=== PATIENT | male | born 1965 | race Caucasian/White ===

== ENCOUNTER 2016-08-31 18:27 | Inpatient (IN) | payer OTHER ==
[~2016-08-31] VITALS: Ht 170.2 cm; Wt 124.5 kg
[~2016-08-31 18:27] MED LIST: 5HTP; AMLODIPINE10 MG PO; ATIVAN1 MG PO; CLONIDINE0.1 M1 PO; COL100 PO; CORE25 PO; CYMBALTA PO; CYMBALTA60 M1 PO; DIPHENHIST25 M1 PO; DOCUSATE; FUROSEMIDE40 MG PO; GLU500 PO; HYT2 PO; K10 PO; LIPOZENE; LISINOPRIL; LOP600 PO; LORAZEPAM0.5 PO; MASON25 MG PO; MORPHINE SULFAT30 M1 PO; MORPHINE SULFAT30 M5 PO; MSC30 PO; NEU100 PO; NEURONTIN600 M PO; NOR10T PO; PENTOXIFYLLINE400 MG PO; PRI20 PO; ROB750 PO; SERO100 PO; SEROQUEL PO; SEROQUEL50 MG PO; SOMA350 MG PO; VITAMIN D; ZOCOR PO
[2016-08-31 19:13] LABS: UA SPECIFIC GRAVITY >=1.030 (1.005-1.035); microscopic required? YES; urine erythrocyte TRACE (NEGATIVE)
[2016-08-31 19:21] LABS: BASOPHIL % 0.1 % (0-2); PLATELET COUNT 250 x10^3mcL (130-400)
[2016-08-31 19:25] LABS: CALCIUM 8.8 mg/dL (8.5-10.1); CARBON DIOXIDE 29.1 mmol/L (21-32); CHLORIDE SERUM 102 mmol/L (98-107); CREATININE SERUM 1.1 mg/dL (0.7-1.3); GFR1 > 60 mL/min; GLUCOSE SERUM 139 mg/dL (74-106); POTASSIUM SERUM 3.4 mmol/L (3.5-5.1); SODIUM SERUM 139 mmol/L (136-145)
[2016-08-31 19:26] LABS: RED CELL DISTRIBUTION WIDTH 16.1 % (11.5-14.5)
[2016-08-31 19:35] LABS: ALKALINE PHOSPHATASE 78 U/L (46-116); ALT/SGPT 22 U/L (16-63); AST/SGOT 18 U/L (15-37); BILIRUBIN TOTAL 0.3 mg/dL (0.20-1.00); TOTAL PROTEIN, SERUM 6.7 g/dL (6.4-8.2)
[2016-08-31 20:00] LABS: CK-MB 2.1 ng/mL (0-3.6)
[2016-08-31] MEDS ORDERED: GABAPENTIN100 M2 PO (22:26)
[2016-08-31] MEDS ORDERED: COLACE100 MG PO (22:27)
[2016-08-31] MEDS ORDERED: SEROQUEL25 MG PO (22:28)
[2016-08-31] MEDS ORDERED: IMITREX5 MG INH (22:39)
[2016-08-31] MEDS ORDERED: AMLODIPINE BESY10 M2 PO (22:40)
[2016-08-31] MEDS ORDERED: METFORMIN500 M1 PO (22:41)
[2016-08-31] MEDS ORDERED: ATIVAN2 MG PO (22:42)
[2016-08-31] MEDS ORDERED: GEMFIBROZIL600 MG PO (22:42)
[2016-08-31] MEDS ORDERED: CYMBALTA30 M1 PO (22:42)
[2016-08-31] MEDS ORDERED: CARVEDILOL12.5 M1 PO (22:42)
[2016-08-31] MEDS ORDERED: ATIVAN0.5 M1 PO (22:43)
[2016-08-31] MEDS ORDERED: NORCO1 TA2 PO (22:43)
[2016-09-01] VITALS (8 sets, daily range): BP systolic 130–169; BP diastolic 79–99
[2016-09-01] MEDS ORDERED: CLONIDINE HCL0.1 MG PO (00:11)
[2016-09-01] MEDS ORDERED: TERAZOSIN HCL2 MG PO (00:13)
[2016-09-01] MEDS ORDERED: GLUCOTROL5 MG PO (00:14)
[2016-09-01] MEDS ORDERED: ZESTRIL40 MG PO (00:15)
[2016-09-01 01:01] LABS: FREE T4 0.8 ng/dL (0.76-1.46); FREE THYROXINE INDEX 1.8 ug/dL (1.4-4.5)
[2016-09-01 01:09] LABS: T3 TOTAL 0.73 ng/mL
[2016-09-01 01:27] LABS: MAGNESIUM 2.1 mg/dL (1.8-2.4)
[2016-09-01 01:28] LABS: CHOLESTEROL/HDL RATIO 5.1
[2016-09-01 04:35] LABS: AMPHETAMINE QUAL UR NONE DETECTED (NEG <=1000)
[2016-09-01 06:16] LABS: CALCIUM 8.7 mg/dL (8.5-10.1); CHLORIDE SERUM 102 mmol/L (98-107); CREATININE SERUM 1.1 mg/dL (0.7-1.3); GFR1 > 60 mL/min; GLUCOSE SERUM 177 mg/dL (74-106); POTASSIUM SERUM 3.9 mmol/L (3.5-5.1); SODIUM SERUM 139 mmol/L (136-145)
[2016-09-01 06:39] LABS: PLATELET COUNT 277 x10^3mcL (130-400)
[2016-09-01 07:26] LABS: BASOPHIL % 0 % (0-2); RED CELL DISTRIBUTION WIDTH 16.5 % (11.5-14.5)
[2016-09-02 06:08] VITALS: BP 121/67
[2016-09-02 06:29] LABS: PLATELET COUNT 285 x10^3mcL (130-400); RED CELL DISTRIBUTION WIDTH 16.1 % (11.5-14.5)
[2016-09-02 06:31] LABS: CALCIUM 8.5 mg/dL (8.5-10.1); CARBON DIOXIDE 29.1 mmol/L (21-32); CHLORIDE SERUM 103 mmol/L (98-107); CREATININE SERUM 0.9 mg/dL (0.7-1.3); GFR1 > 60 mL/min; GLUCOSE SERUM 139 mg/dL (74-106); MAGNESIUM 2.2 mg/dL (1.8-2.4); PHOSPHOROUS 4.5 mg/dL (2.5-4.9); SODIUM SERUM 139 mmol/L (136-145)
[2016-09-02 10:10] VITALS: BP 153/96
[2016-09-02 10:45] LABS: BAND NEUTROPHIL 2 % (0-10); BASOPHIL 0 % (0-2); MONOCYTE 3 % (0-7); SEGMENTED NEUTROPHILS 87 % (37-75)
[2016-09-02 10:46] LABS: PLATELET MORPHOLOGY PLATELETS NORMAL; rbc morphology (normal/abnorm) ABNORMAL (NORMAL)
[2016-09-02 13:18] VITALS: BP 153/97
[2016-09-02 17:52] VITALS: BP 153/98
[2016-09-02 20:38] VITALS: BP 148/104
[2016-09-03 05:54] VITALS: BP 155/99
[2016-09-03 06:24] LABS: BASOPHIL % 0.2 % (0-2); PLATELET COUNT 311 x10^3mcL (130-400)
[2016-09-03 06:31] LABS: RED CELL DISTRIBUTION WIDTH 16.4 % (11.5-14.5)
[2016-09-03 06:33] LABS: CALCIUM 8.2 mg/dL (8.5-10.1); CARBON DIOXIDE 33.9 mmol/L (21-32); CHLORIDE SERUM 99 mmol/L (98-107); CREATININE SERUM 0.9 mg/dL (0.7-1.3); GFR1 > 60 mL/min; GLUCOSE SERUM 124 mg/dL (74-106); PHOSPHOROUS 3.3 mg/dL (2.5-4.9); POTASSIUM SERUM 3.7 mmol/L (3.5-5.1); SODIUM SERUM 138 mmol/L (136-145)
[2016-09-03 09:58] VITALS: BP 164/110
[2016-09-03 13:50] VITALS: BP 147/94
[2016-09-03 17:17] VITALS: BP 151/97
[2016-09-03 19:20] VITALS: BP 140/81
[2016-09-04 06:01] VITALS: BP 148/95
[2016-09-04 08:23] LABS: PLATELET COUNT 319 x10^3mcL (130-400)
[2016-09-04 08:29] LABS: BASOPHIL % 0 % (0-2); CALCIUM 8.5 mg/dL (8.5-10.1); CARBON DIOXIDE 36.9 mmol/L (21-32); CHLORIDE SERUM 102 mmol/L (98-107); CREATININE SERUM 0.8 mg/dL (0.7-1.3); GFR1 > 60 mL/min; GLUCOSE SERUM 129 mg/dL (74-106); MAGNESIUM 2.1 mg/dL (1.8-2.4); PHOSPHOROUS 3.2 mg/dL (2.5-4.9); POTASSIUM SERUM 3.8 mmol/L (3.5-5.1); RED CELL DISTRIBUTION WIDTH 16.3 % (11.5-14.5); SODIUM SERUM 140 mmol/L (136-145)
[2016-09-04 09:41] VITALS: BP 147/103
[2016-09-04 17:01] VITALS: BP 143/93
[2016-09-04 19:10] VITALS: BP 159/95
[2016-09-04 21:55] VITALS: BP 148/88
[2016-09-05 05:58] LABS: PLATELET COUNT 350 x10^3mcL (130-400)
[2016-09-05 06:15] VITALS: BP 138/82
[2016-09-05 06:18] LABS: CALCIUM 8.5 mg/dL (8.5-10.1); CARBON DIOXIDE 34.5 mmol/L (21-32); CHLORIDE SERUM 100 mmol/L (98-107); CREATININE SERUM 0.8 mg/dL (0.7-1.3); GFR1 > 60 mL/min; GLUCOSE SERUM 127 mg/dL (74-106); POTASSIUM SERUM 3.4 mmol/L (3.5-5.1); SODIUM SERUM 140 mmol/L (136-145)
[2016-09-05 06:49] LABS: BASOPHIL % 0 % (0-2); RED CELL DISTRIBUTION WIDTH 16.1 % (11.5-14.5)
[2016-09-05 09:42] VITALS: BP 139/87
[2016-09-05] MEDS ORDERED: ASPIR 8181 MG PO (12:37)
[2016-09-05 17:30] VITALS: BP 153/98
[2016-09-05 21:23] VITALS: BP 149/103
[2016-09-06 06:37] VITALS: BP 117/82
[2016-09-06 07:49] LABS: CALCIUM 9.1 mg/dL (8.5-10.1); CHLORIDE SERUM 101 mmol/L (98-107); CREATININE SERUM 0.8 mg/dL (0.7-1.3); GFR1 > 60 mL/min; GLUCOSE SERUM 99 mg/dL (74-106); POTASSIUM SERUM 4.4 mmol/L (3.5-5.1); SODIUM SERUM 141 mmol/L (136-145)
[2016-09-06 07:55] LABS: BASOPHIL % 0.4 % (0-2)
[2016-09-06 07:56] LABS: PLATELET COUNT 410 x10^3mcL (130-400); RED CELL DISTRIBUTION WIDTH 15.8 % (11.5-14.5)
[2016-09-06 08:27] VITALS: BP 133/96
[2016-09-06 11:53] VITALS: Ht 170.2 cm; Wt 124.5 kg
[2016-09-06 13:24] VITALS: BP 129/87
[2016-09-06 17:56] VITALS: BP 145/96
[2016-09-06 20:33] VITALS: BP 149/97
[2016-09-07 06:36] LABS: BASOPHIL % 0.2 % (0-2)
[2016-09-07 06:41] VITALS: BP 149/86
[2016-09-07 06:44] LABS: PLATELET COUNT 436 x10^3mcL (130-400)
[2016-09-07 06:52] LABS: CALCIUM 9.3 mg/dL (8.5-10.1); CARBON DIOXIDE 33.4 mmol/L (21-32); CHLORIDE SERUM 100 mmol/L (98-107); CREATININE SERUM 0.8 mg/dL (0.7-1.3); GFR1 > 60 mL/min; GLUCOSE SERUM 77 mg/dL (74-106); POTASSIUM SERUM 3.9 mmol/L (3.5-5.1); SODIUM SERUM 138 mmol/L (136-145)
[2016-09-07 10:17] VITALS: BP 118/77
[2016-09-07 11:17] VITALS: BP 118/77
[2016-09-07 14:38] VITALS: BP 130/86
[2016-09-07 17:38] VITALS: BP 122/83
[2016-09-07 20:54] VITALS: BP 134/92
[2016-09-08] VITALS (7 sets, daily range): BP systolic 105–152; BP diastolic 71–98
[2016-09-08 07:00] LABS: BASOPHIL % 0.4 % (0-2)
[2016-09-08 07:07] LABS: PLATELET COUNT 407 x10^3mcL (130-400); RED CELL DISTRIBUTION WIDTH 16.1 % (11.5-14.5)
[2016-09-08 07:29] LABS: CARBON DIOXIDE 32.5 mmol/L (21-32); CHLORIDE SERUM 100 mmol/L (98-107); CREATININE SERUM 0.9 mg/dL (0.7-1.3); GFR1 > 60 mL/min; GLUCOSE SERUM 81 mg/dL (74-106); POTASSIUM SERUM 3.7 mmol/L (3.5-5.1); SODIUM SERUM 137 mmol/L (136-145)
[2016-09-09 05:28] VITALS: BP 128/71
[2016-09-09 09:19] VITALS: BP 128/75
[2016-09-09 13:28] VITALS: BP 129/83
== END 2016-09-09 19:20 | disposition home health service (06) | DRG 871 ==
LOC: ED 18:27 → DU 23:25 → MU 23:25 → DU 23:55 → MU 09-02 08:02 → DU 09-05 11:27
PROVIDERS: Emergency Medicine; Family Medicine; ADMIT Family Medicine
DX: A41.9 Sepsis, unspecified organism (principal); J69.0 Pneumonitis due to inhalation of food and vomit; N17.0 Acute kidney failure with tubular necrosis; J44.1 Chronic obstructive pulmonary disease with (acute) exacerbation; N39.0 Urinary tract infection, site not specified; E44.0 Moderate protein-calorie malnutrition; D68.69 Other thrombophilia; Z68.41 Body mass index [BMI] 40.0-44.9, adult; J96.11 Chronic respiratory failure with hypoxia; I42.2 Other hypertrophic cardiomyopathy; R65.20 Severe sepsis without septic shock; G47.33 Obstructive sleep apnea (adult) (pediatric); I13.10 Hypertensive heart and chronic kidney disease without heart failure, with stage 1 through stage 4 chronic kidney disease, or unspecified chronic kidney disease; N18.9 Chronic kidney disease, unspecified; F25.0 Schizoaffective disorder, bipolar type; E11.51 Type 2 diabetes mellitus with diabetic peripheral angiopathy without gangrene; E11.22 Type 2 diabetes mellitus with diabetic chronic kidney disease; E87.6 Hypokalemia; M79.7 Fibromyalgia; M70.32 Other bursitis of elbow, left elbow; M54.9 Dorsalgia, unspecified; G89.29 Other chronic pain; D64.9 Anemia, unspecified; N40.0 Benign prostatic hyperplasia without lower urinary tract symptoms; E66.01 Morbid (severe) obesity due to excess calories; Z87.891 Personal history of nicotine dependence; Z79.84 Long term (current) use of oral hypoglycemic drugs; Z99.81 Dependence on supplemental oxygen
CPT/HCPCS: 36600; 80307; 83880; 84439; C9113; J1644; J1956; J2930; J3490; J7030; J7613; J7620; J7626; J7644; Q0092; Q9967

== ENCOUNTER 2017-03-28 15:54 | Emergency (ER) | payer OTHER ==
[~2017-03-28 15:54] MED LIST changes: +AMLODIPINE BESY10 M2 PO; +ASPIR 8181 MG PO; +ATIVAN0.5 M1 PO; +ATIVAN2 MG PO; +CARVEDILOL12.5 M1 PO; +CLONIDINE HCL0.1 MG PO; +COLACE100 MG PO; +CYMBALTA30 M1 PO; +GABAPENTIN100 M2 PO; +GEMFIBROZIL600 MG PO; +GLUCOTROL5 MG PO; +IMITREX5 MG INH; +METFORMIN500 M1 PO; +NORCO1 TA2 PO; +SEROQUEL25 MG PO; +TERAZOSIN HCL2 MG PO; +ZESTRIL40 MG PO
[2017-03-28 18:24] VITALS: BP 161/109
== END 2017-03-28 18:24 | disposition home or self-care (01) ==
LOC: ED 15:54
DX: S61.012A Laceration without foreign body of left thumb without damage to nail, initial encounter (principal); I10 Essential (primary) hypertension; M79.7 Fibromyalgia; G89.29 Other chronic pain; X58.XXXA Exposure to other specified factors, initial encounter; Y93.89 Activity, other specified; Y99.8 Other external cause status; Y92.89 Other specified places as the place of occurrence of the external cause
CPT/HCPCS: 90715; J2001

== ENCOUNTER 2017-03-31 18:03 | Emergency (ER) | payer OTHER ==
[2017-03-31 21:13] VITALS: BP 181/116
== END 2017-03-31 21:13 | disposition home or self-care (01) ==
LOC: ED 18:03
DX: S61.012D Laceration without foreign body of left thumb without damage to nail, subsequent encounter (principal); I10 Essential (primary) hypertension; J45.909 Unspecified asthma, uncomplicated; Z90.49 Acquired absence of other specified parts of digestive tract; X58.XXXD Exposure to other specified factors, subsequent encounter

== ENCOUNTER 2017-04-08 14:46 | Emergency (ER) | payer OTHER ==
[~2017-04-08] VITALS: Ht 170.2 cm; Wt 116.1 kg
[2017-04-08 17:12] VITALS: BP 127/89
== END 2017-04-08 17:12 | disposition home or self-care (01) ==
LOC: ED 14:46
DX: S61.012D Laceration without foreign body of left thumb without damage to nail, subsequent encounter (principal); X58.XXXD Exposure to other specified factors, subsequent encounter

== ENCOUNTER 2018-02-22 22:51 | Emergency (ER) | payer OTHER ==
[~2018-02-22] VITALS: Ht 170.2 cm; Wt 115.7 kg
[2018-02-22 22:55] VITALS: Ht 170.2 cm; Wt 115.7 kg
[2018-02-23 00:31] VITALS: BP 159/105
== END 2018-02-23 00:31 | disposition home or self-care (01) ==
LOC: ED 22:51
DX: S81.811A Laceration without foreign body, right lower leg, initial encounter (principal); E11.9 Type 2 diabetes mellitus without complications; J45.909 Unspecified asthma, uncomplicated; I10 Essential (primary) hypertension; G89.29 Other chronic pain; M54.2 Cervicalgia; F41.9 Anxiety disorder, unspecified; F31.9 Bipolar disorder, unspecified; Z90.89 Acquired absence of other organs; W26.0XXA Contact with knife, initial encounter; Y93.89 Activity, other specified; Y92.89 Other specified places as the place of occurrence of the external cause; Y99.8 Other external cause status
CPT/HCPCS: J2001

== ENCOUNTER 2018-04-20 16:52 | Emergency (ER) | payer OTHER ==
[~2018-04-20] VITALS: Ht 167.6 cm; Wt 117.9 kg
[2018-04-20 17:35] VITALS: Ht 167.6 cm; Wt 117.9 kg
[2018-04-20 19:59] VITALS: BP 165/100
== END 2018-04-20 19:59 | disposition home or self-care (01) ==
LOC: ED 16:52
DX: S46.911A Strain of unspecified muscle, fascia and tendon at shoulder and upper arm level, right arm, initial encounter (principal); I10 Essential (primary) hypertension; E11.9 Type 2 diabetes mellitus without complications; M79.7 Fibromyalgia; G89.29 Other chronic pain; F41.9 Anxiety disorder, unspecified; F32.9 Major depressive disorder, single episode, unspecified; Z90.89 Acquired absence of other organs; V29.9XXA Motorcycle rider (driver) (passenger) injured in unspecified traffic accident, initial encounter; Y93.55 Activity, bike riding; Y92.89 Other specified places as the place of occurrence of the external cause; Y99.8 Other external cause status
CPT/HCPCS: J1885; Q0092

== ENCOUNTER 2018-06-29 22:47 | Emergency (ER) | payer OTHER ==
[~2018-06-29] VITALS: Ht 167.6 cm; Wt 114.8 kg
[2018-06-29 23:24] VITALS: Ht 167.6 cm; Wt 114.8 kg
[2018-06-30 01:05] VITALS: BP 149/91
== END 2018-06-30 01:05 | disposition home or self-care (01) ==
LOC: ED 22:47
DX: M79.671 Pain in right foot (principal); J45.909 Unspecified asthma, uncomplicated; I10 Essential (primary) hypertension; E11.9 Type 2 diabetes mellitus without complications; M79.7 Fibromyalgia; F41.9 Anxiety disorder, unspecified; F31.9 Bipolar disorder, unspecified; Z90.89 Acquired absence of other organs; Z98.890 Other specified postprocedural states

== ENCOUNTER 2019-01-05 05:59 | Inpatient (IN) | payer OTHER ==
[~2019-01-05] VITALS: Ht 170.2 cm; Wt 112.7 kg
--- NOTE | 2019-01-05 06:27 | NUR ---
PT. PRESENTST TO ER C/O PRODUCTIVE COUGH WITH YELLOW FLEM X 4 DAYS, AAOX4, DENIES CHEST PAIN, RHONCHI AUSCULTATED ON RIGHT UPPER LOBE, DIMINISHED LUNG SOUNDS AUSCULTATED ON LEFT SIDE, DENIES URINARY SYMTPOMS, DENIES FEVER & CHILLS, PLACED ON PULSE OX, MADE COMFORTABLE, PENDING MSE,
--- NOTE | 2019-01-05 06:34 | NUR ---
PT. STATES HE IS NON-COMPLAINT WITH BP MEDICATIONS
--- NOTE | 2019-01-05 07:12 | NUR ---
REPORT GIVEN TO YARI FREEMAN
--- NOTE | 2019-01-05 07:12 | NUR ---
RECEIVED REPORT FROM Zhanna THOMPSON RN FOR CONTINUED CARE OF PATIENT.
--- NOTE | 2019-01-05 08:12 | NUR ---
PATIENT EXPRESSES NO NEEDS AT THIS TIME. BREATHING E/U, NAD NOTED. WILL CONTINUE TO MONITOR.
[2019-01-05 09:26] LABS: CALCIUM 8.8 mg/dL (8.5-10.1); CARBON DIOXIDE 33.8 mmol/L (21-32); CHLORIDE SERUM 101 mmol/L (98-107); CREATININE SERUM 1.2 mg/dL (0.7-1.3); GFR1 > 60 mL/min; GLUCOSE SERUM 101 mg/dL (74-106); POTASSIUM SERUM 3.1 mmol/L (3.5-5.1); SODIUM SERUM 141 mmol/L (136-145)
[2019-01-05 09:30] LABS: BASOPHIL % 0.2 % (0-2); PLATELET COUNT 303 x10^3mcL (130-400)
[2019-01-05 09:32] LABS: RED CELL DISTRIBUTION WIDTH 15.2 % (11.5-14.5)
[2019-01-05 09:36] LABS: ALBUMIN 3.8 g/dL (3.4-5.0); ALKALINE PHOSPHATASE 69 U/L (46-116); ALT/SGPT 26 U/L (16-63); AST/SGOT 15 U/L (15-37); BILIRUBIN TOTAL 0.31 mg/dL (0.20-1.00); C REACTIVE PROTEIN 6.7 mg/dL (<=0.9); TOTAL PROTEIN, SERUM 6.9 g/dL (6.4-8.2)
[2019-01-05 09:42] LABS: CK-MB 1.6 ng/mL (0-3.6)
[2019-01-05 09:47] LABS: T3 TOTAL 0.99 ng/mL
[2019-01-05 09:51] LABS: FREE T4 1.04 ng/dL (0.76-1.46); FREE THYROXINE INDEX 3.1 ug/dL (1.4-4.5); T4(THYROXINE) 7.9 ug/dL (4.7-13.3)
--- NOTE | 2019-01-05 09:55 | NUR ---
PLACED PATIENT ON 4 L OR VIA NC. PT SATS DROPPED TO LOW 80'S, PRIOR TO O2 BEING PLACED ON PT. PT SATS NOW AT LOW 90S. MADE AWARE.
[2019-01-05 10:04] LABS: ERYTHROCYTE SED RATE 22 mm/hr (0-20)
[2019-01-05 11:00] LABS: microscopic required? YES; urine erythrocyte NEGATIVE (NEGATIVE)
[2019-01-05] MEDS ORDERED: LEVOTHYROXIN0.025 M2 PO (11:28)
[2019-01-05] MEDS ORDERED: EPZICOM1 TAB (11:28)
[2019-01-05] MEDS ORDERED: PROZ10 PO (11:30)
--- NOTE | 2019-01-05 13:03 | NUR ---
MEDICATED PER MD ORDERS
--- NOTE | 2019-01-05 13:50 | NUR ---
PROVIDED REPORT TO LYDIA GUERRA FOR CONTINUED CARE OF PATIENT.
[2019-01-05 14:27] VITALS: BP 164/92
--- NOTE | 2019-01-05 14:41 | NUR ---
RECEIVED PT FROM ED VIA MARISELA. ORIENTED PT TO ROOM AND SURROUNDINGS. IV NOTED TO LAC PATENT AND INTACT. TELE 1 PLACED ON PT READING NSR. INSTRUCTED PT ON THE USE OF CALL LIGHT FOR ASSISTANCE. ENDORSED PT TO PRIMARY NURSE CHARLIE
[2019-01-05 14:59] LABS: CHOLESTEROL/HDL RATIO 2.9
--- NOTE | 2019-01-05 15:17 | NUR ---
PT COMPLAINING OF BLE PAIN, TLYNEOL PO GIVEN, NO RESPRIATORY DISTRESS NOTED, CALL LIGHT WITHIN REACH.
[2019-01-05 16:37] VITALS: BP 153/92
--- NOTE | 2019-01-05 17:03 | NUR ---
PT AMBUALTING TO BATHROOM AND BACK TO BED INDEPENDENTLY, NO RESPIRAGTORY DISTRESS NOTED, DENIES PAIN AT THIS TIME, CALL LIGHT WITHIN REACH. PT REFUSED INSULIN FOR ACCUCHECK 182.
--- NOTE | 2019-01-05 18:28 | NUR ---
PT ATTEMPTING TO BRING PT OUTSIDE FOOD. PT AND EDUCATED THAT PT ON [facility] DIET DUE TO DIABETES AND OUTSIDE FOOD NOT ALLOWED AT THIS TIME.
--- NOTE | 2019-01-05 19:16 | NUR ---
ENDORSED CARE TO REED FREEMAN.
[2019-01-05 19:25] VITALS: BP 168/97
--- NOTE | 2019-01-05 19:25 | NUR ---
RECEIVED PT ON HIS PHONE,ALERT AND ORIENTED X4.BREATHIONG EASY AND NON-LABORED WITH ON AND OFF PRODUCTIVE COUGHING TO THICH YELLOW COLORED SPUTUM.HOURSE VOICE NOTED.TOLERATING ROOMAIR @ 94%.DIMINISHED BREATHSOUNDS.DENIES SOB/CONGESTION.IN NO RESPIRATORY DISTRESS.WILL CONTINUE TO MONITOR.
--- NOTE | 2019-01-05 21:25 | NUR ---
BIPAP BROUGHT TO PATIENTS ROOM FOR NOC PER DR. RHODES ORDER. PATIENT REFUSED BIPAP. NO RESPIRATORY DISTRESS AT THIS TIME. WILL MONITOR.
[2019-01-06] VITALS: BP 140/80
--- NOTE | 2019-01-06 04:43 | NUR ---
PT SLEPT WELL.ON AND OFF PRODUCTIVE COUGHING NOTED.NO SOB/CONGESTION NOTED.ON SOLUMEDROL IV AND WELL TOLERATED.BREATHING TX GIVEN BY RT ORDERED.REFUSED BIPAP ORDERED.ALL NEEDS MET.WILL CONTINUE TO MONITOR.
[2019-01-06 05:28] VITALS: BP 148/89
[2019-01-06 06:04] LABS: BASOPHIL % 0.1 % (0-2); PLATELET COUNT 325 x10^3mcL (130-400)
[2019-01-06 06:53] LABS: CALCIUM 8.7 mg/dL (8.5-10.1); CARBON DIOXIDE 29.3 mmol/L (21-32); CHLORIDE SERUM 104 mmol/L (98-107); GFR1 > 60 mL/min; GLUCOSE SERUM 194 mg/dL (74-106); POTASSIUM SERUM 3.6 mmol/L (3.5-5.1); SODIUM SERUM 144 mmol/L (136-145)
--- NOTE | 2019-01-06 07:05 | NUR ---
RECEIVED PATIENT SLEEPING AT THIS TIME, AWAKEM EASILY. TELE #1 NOTED SR W/ HR 82. IV TO LAC INTACT AND SL NOTED. NO ACUTE DISTRESS NOTED. CALL LIGHT WITHIN REACH.
[2019-01-06 07:19] LABS: RED CELL DISTRIBUTION WIDTH 15.1 % (11.5-14.5)
--- NOTE | 2019-01-06 08:03 | NUR ---
PATIENT SAT UP IN BED ON BREATHING TX, SAT 94% PER RT WILL TAKE PATIENT OFF O2 AT 1LNC. PROFESSOR OF PHYSICS CRIS SEE PATIENT AND TALK TO PATIENT AT THIS TIME. DISCUSS POC WITH PATIENT. CONT ABX AND STEROID TX. REPORT TO YOLI LYNCH WBC 19.5 PER PROFESSOR OF PHYSICS PATIENT ON STEROID NO INTERVENTION. CALL LIGHT WITHIN REACH.
[2019-01-06 09:28] VITALS: BP 132/70
--- NOTE | 2019-01-06 09:30 | NUR ---
PATIENT RESTING IN BED ON ROOM AIR SAT 84%, PLACE O2 2LNC SAT 94%; WALKING TO BATHROOM AND BACK NO C/O SOB. ALL DUE MEDS ADMINISTERED. LEVAQUIN IVPB INFUSING TO LAC IV FLUSH WELL AND PATENT. CONT TO MONITOR.
--- NOTE | 2019-01-06 11:01 | NUR ---
SEND SPUTUM FOR CULTURE ORDER, PATIENT SLEEPING NO DISTRESS NOTED.
--- NOTE | 2019-01-06 11:37 | NUR ---
PATIENT AWAKE/ALERT ON BREATHING TX, PER RT RA SAT 91%; ADMINISTERED 6 UNITS REGULAR SQ, BS 237. CONT TO MONITOR.
[2019-01-06 12:52] VITALS: BP 138/92
--- NOTE | 2019-01-06 13:29 | NUR ---
PATIENT SITTING UP IN BED EATING HIS LUNCH, NO COMPLAIN. SOLUMEDROL ADMINISTERED TO LAC IV FLUSH WELL AND PATENT, NO REACTION NOTED. NEEDS MET. CALL LIGHT WITHIN REACH.
[2019-01-06 17:26] VITALS: BP 145/90
--- NOTE | 2019-01-06 19:00 | NUR ---
REPORT GIVEN TO REED RN, PATIENT RESTING IN BED COMFORTABLE NO DISTRESS NOTED.
[2019-01-06 19:10] VITALS: BP 164/90
--- NOTE | 2019-01-06 19:12 | NUR ---
PATIENT RESTING IN BED NO COMPLAINS. CARE ENDORSE TO FRANCIE FREEMAN.
--- NOTE | 2019-01-06 19:15 | NUR ---
RECEIVED PT AWAKE ALERT AND VERBALLY RESPONSIVE.BREATHING EASY AND NON-LABORED.TOLERATING ROOMAIR AT THIS TIME.O2 SAT @ 94%.ON AND OFF PRODUCTIVE COUGHING AND ABLE TO EXPECTORATE THICK MUCOUS.DIMINISHED BREATHSOUNDS.DENIES CHESTPAIN.BP 164/90 MMHG,HR 78.WILL CONTINUE TO MONITOR.
--- NOTE | 2019-01-07 04:43 | NUR ---
PT SLEPT WELL.BREATHING EASY AND NON-LABORED WITH ON AND OFF PRODUCTIVE COUGHING.TOLERATED ROOMAIR ALL NIGHT.REFUSED BIPAP.MEDICATED WITH TORADOL 15 MG IVP X1 WITH GOOD RELIEF.ALL NEEDS MET.WILL CONTINUE TO MONITOR.
[2019-01-07 06:11] VITALS: BP 154/90
[2019-01-07 06:15] LABS: PLATELET COUNT 318 x10^3mcL (130-400)
[2019-01-07 06:30] LABS: CALCIUM 8.2 mg/dL (8.5-10.1); CARBON DIOXIDE 32.3 mmol/L (21-32); CHLORIDE SERUM 101 mmol/L (98-107); CREATININE SERUM 1.2 mg/dL (0.7-1.3); GFR1 > 60 mL/min; GLUCOSE SERUM 258 mg/dL (74-106); POTASSIUM SERUM 3.5 mmol/L (3.5-5.1); SODIUM SERUM 140 mmol/L (136-145)
--- NOTE | 2019-01-07 07:10 | NUR ---
RECIEVED PT RESTING IN BED WITH NO DISTRESS OR PAIN. A/O X4 WITH NO LYON DIZZINESS. PT ON TELE #1 WITH NO C/O CP OR PRESSURE. SALINE LOCK ON LAC, INTACT AND PATENT WITH NO REDNESS OR INFLAMMATION. SAFETY PRECAUTIONS IN PLACE, CALL LIGHT WITHIN REACH, WILL MONITOR.
[2019-01-07 07:45] LABS: RED CELL DISTRIBUTION WIDTH 15.1 % (11.5-14.5)
[2019-01-07 11:41] LABS: BAND NEUTROPHIL 0 % (0-10); BASOPHIL 0 % (0-2); MONOCYTE 4 % (0-7); SEGMENTED NEUTROPHILS 93 % (37-75)
[2019-01-07 11:42] LABS: PLATELET MORPHOLOGY PLATELETS INCREASED; rbc morphology (normal/abnorm) ABNORMAL (NORMAL)
[2019-01-07] MEDS ORDERED: MUCINEX600 MG PO (12:48)
[2019-01-07] MEDS ORDERED: LEVOFLOXACIN500 M1 PO (12:48)
[2019-01-07] MEDS ORDERED: PREDNISONE20 MG PO (12:49)
[2019-01-07] MEDS ORDERED: COMINH INH (12:50)
[2019-01-07 14:01] VITALS: BP 163/100
--- NOTE | 2019-01-07 14:09 | NUR ---
PT BP 175/109, HR 78. SECOND ATTEMPT WAS 163/100, HR 88. DR LOCK MADE AWARE AND HE GAVE A TELEPHONE ORDER FOR CLONIDINE 0.2MG PO X1 DOSE NOW, RBTO. WILL CARRY OUT AND RECHECK BP. DISCHARGE WHEN BP IS STABLE PER DR LOCK.
[2019-01-07 14:21] VITALS: BP 163/100
[2019-01-07 15:54] VITALS: BP 152/86
--- NOTE | 2019-01-07 16:20 | NUR ---
PT STABLE TO DISCHARGE PER MD ORDER. ALL DISCHARGE INSTRUCTIONS, EDUCATION, AND PRESCRIPTIONS GIVEN TO PT AND HE VERBALIZES UNDERSTANDING. IV REMOVED WITH CATHETER INTACT AND NO REDNESS OR INFLAMMATION IS NOTED. VS WNL, BP 152/86, HR 77, RR 18, TEMP 97.8, AND SAT 95% ON RA. PT DENIES ANY SOB OR ANY CP. ID BAND REMOVED FROM PT. PT ESCORTED DOWN TO LOBBY VIA WC BY TRUDI.
[2019-01-10 11:34] VITALS: Ht 170.2 cm; Wt 112.7 kg
== END 2019-01-07 16:28 | disposition home or self-care (01) | DRG 189 ==
LOC: ED 05:59 → DU 12:57
PROVIDERS: Specialist; ADMIT Internal Medicine
DX: J96.01 Acute respiratory failure with hypoxia (principal); N17.0 Acute kidney failure with tubular necrosis; J44.1 Chronic obstructive pulmonary disease with (acute) exacerbation; Z68.41 Body mass index [BMI] 40.0-44.9, adult; J44.0 Chronic obstructive pulmonary disease with (acute) lower respiratory infection; J20.9 Acute bronchitis, unspecified; E87.6 Hypokalemia; E11.65 Type 2 diabetes mellitus with hyperglycemia; M79.7 Fibromyalgia; R48.0 Dyslexia and alexia; I10 Essential (primary) hypertension; G47.33 Obstructive sleep apnea (adult) (pediatric); F20.9 Schizophrenia, unspecified; F32.9 Major depressive disorder, single episode, unspecified; E66.01 Morbid (severe) obesity due to excess calories; Z91.19 Patient's noncompliance with other medical treatment and regimen; Z22.322 Carrier or suspected carrier of Methicillin resistant Staphylococcus aureus; Z79.82 Long term (current) use of aspirin; Z79.84 Long term (current) use of oral hypoglycemic drugs
CPT/HCPCS: 36600; 82962; 83880; 84439; G0378; J0456; J0696; J1644; J1815; J1885; J1956; J2920; J2930; J7050; J7060; J7613; J7620; J7644; Q9967

== ENCOUNTER 2019-09-07 09:10 | Inpatient (IN) | payer OTHER, SELFPAY ==
[~2019-09-07] VITALS: Ht 170.2 cm; Wt 124.8 kg
[~2019-09-07 09:10] MED LIST changes: +COMINH INH; +EPZICOM1 TAB; +LEVOFLOXACIN500 M1 PO; +LEVOTHYROXIN0.025 M2 PO; +MUCINEX600 MG PO; +PREDNISONE20 MG PO; +PROZ10 PO; -TERAZOSIN HCL2 MG PO
[2019-09-07 09:55] LABS: microscopic required? NO
[2019-09-07 10:06] LABS: UA SPECIFIC GRAVITY 1.015 (1.005-1.035); urine erythrocyte NEGATIVE (NEGATIVE)
[2019-09-07 10:31] LABS: BASOPHIL % 0.3 % (0-2); PLATELET COUNT 312 x10^3mcL (130-400)
[2019-09-07 10:43] LABS: CALCIUM 8.7 mg/dL (8.5-10.1); CARBON DIOXIDE 34.4 mmol/L (21-32); CHLORIDE SERUM 101 mmol/L (98-107); CREATININE SERUM 1.3 mg/dL (0.7-1.3); GFR1 > 60 mL/min; GLUCOSE SERUM 104 mg/dL (74-106); POTASSIUM SERUM 3.4 mmol/L (3.5-5.1); SODIUM SERUM 142 mmol/L (136-145)
[2019-09-07 10:57] LABS: ALBUMIN 3.6 g/dL (3.4-5.0); ALKALINE PHOSPHATASE 73 U/L (46-116); ALT/SGPT 63 U/L (16-63); AST/SGOT 30 U/L (15-37); BILIRUBIN TOTAL 0.3 mg/dL (0.20-1.00); LACTIC DEHYDROGENASE (LDH) 224 U/L (100-190); TOTAL PROTEIN, SERUM 6.7 g/dL (6.4-8.2)
[2019-09-07 11:54] LABS: T3 TOTAL 0.93 ng/mL
[2019-09-07 11:57] LABS: CHOLESTEROL/HDL RATIO 2.8
[2019-09-07 12:07] LABS: FREE T4 0.97 ng/dL (0.76-1.46); FREE THYROXINE INDEX 2.3 ug/dL (1.4-4.5); T4(THYROXINE) 6.4 ug/dL (4.7-13.3)
[2019-09-07 13:48] VITALS: BP 141/91
[2019-09-07 13:52] VITALS: BP 141/91
[2019-09-07] MEDS ORDERED: SEROQUEL50 M1 PO (14:31)
[2019-09-07] MEDS ORDERED: DULOXETINE HYDR30 MG PO (14:31)
[2019-09-07] MEDS ORDERED: HYDROCHLOROTHIA25 MG PO (14:31)
[2019-09-07] MEDS ORDERED: FENOFIBRATE MI134 MG PO (14:31)
[2019-09-07] MEDS ORDERED: SOMA350 MG PO (15:36)
[2019-09-07] MEDS ORDERED: COREG25 M1 PO (15:36)
[2019-09-07] MEDS ORDERED: NOR10T PO (15:38)
[2019-09-07 16:55] VITALS: Ht 170.2 cm; Wt 124.8 kg
[2019-09-07 17:30] VITALS: BP 159/86
[2019-09-07 19:30] VITALS: BP 153/96
[2019-09-07 20:55] VITALS: BP 159/86
[2019-09-08 06:20] VITALS: BP 152/88
[2019-09-08 07:23] LABS: CALCIUM 9.3 mg/dL (8.5-10.1); CARBON DIOXIDE 35.6 mmol/L (21-32); CHLORIDE SERUM 99 mmol/L (98-107); CREATININE SERUM 1.1 mg/dL (0.7-1.3); GFR1 > 60 mL/min; GLUCOSE SERUM 212 mg/dL (74-106); POTASSIUM SERUM 3.5 mmol/L (3.5-5.1); SODIUM SERUM 139 mmol/L (136-145)
[2019-09-08 07:31] LABS: BASOPHIL % 0.1 % (0-2); PLATELET COUNT 332 x10^3mcL (130-400); RED CELL DISTRIBUTION WIDTH 15.8 % (11.5-14.5)
[2019-09-08 08:27] VITALS: BP 154/92
[2019-09-08 12:49] VITALS: BP 151/97
[2019-09-08 17:42] VITALS: BP 146/85
[2019-09-08 21:45] VITALS: BP 153/95
[2019-09-09 06:08] VITALS: BP 153/94
[2019-09-09 07:01] LABS: PLATELET COUNT 358 x10^3mcL (130-400)
[2019-09-09 07:22] LABS: CALCIUM 9.2 mg/dL (8.5-10.1); CARBON DIOXIDE 38.3 mmol/L (21-32); CHLORIDE SERUM 99 mmol/L (98-107); CREATININE SERUM 1.1 mg/dL (0.7-1.3); GFR1 > 60 mL/min; GLUCOSE SERUM 207 mg/dL (74-106); POTASSIUM SERUM 3.7 mmol/L (3.5-5.1); SODIUM SERUM 140 mmol/L (136-145)
[2019-09-09 08:16] LABS: BASOPHIL % 0 % (0-2)
[2019-09-09 08:20] VITALS: BP 156/88
[2019-09-09] MEDS ORDERED: VENTOLIN H0.09 MG/A1 IH (11:15)
[2019-09-09] MEDS ORDERED: ZITHROMAX TRI-500 MG PO (11:17)
[2019-09-09] MEDS ORDERED: MEDROL DOSEPAK4 MG PO (11:18)
[2019-09-09 12:52] VITALS: BP 147/89
[2019-09-09 12:55] VITALS: BP 147/89
[2019-09-09] MEDS ORDERED: TERAZOSIN HCL2 MG PO (13:04)
== END 2019-09-09 14:01 | disposition home or self-care (01) | DRG 193 ==
LOC: ED 09:10 → DU 11:15
PROVIDERS: Emergency Medicine; ADMIT Family Medicine
DX: J18.9 Pneumonia, unspecified organism (principal); J96.00 Acute respiratory failure, unspecified whether with hypoxia or hypercapnia; Z68.41 Body mass index [BMI] 40.0-44.9, adult; J44.0 Chronic obstructive pulmonary disease with (acute) lower respiratory infection; E87.6 Hypokalemia; E66.01 Morbid (severe) obesity due to excess calories; Z20.828 Contact with and (suspected) exposure to other viral communicable diseases; I10 Essential (primary) hypertension; E11.9 Type 2 diabetes mellitus without complications; M79.7 Fibromyalgia; F41.9 Anxiety disorder, unspecified; F31.9 Bipolar disorder, unspecified; M54.9 Dorsalgia, unspecified; G89.29 Other chronic pain; M54.2 Cervicalgia; F25.9 Schizoaffective disorder, unspecified
CPT/HCPCS: 36600; 82962; 83880; 84439; 85378; 87804; G0378; J1815; J1956; J2920; J2930; J3535; J7030; Q0092

== ENCOUNTER 2019-10-08 09:01 | Inpatient (IN) | payer OTHER, SELFPAY ==
[~2019-10-08] VITALS: Ht 167.6 cm; Wt 126.0 kg
[~2019-10-08 09:01] MED LIST changes: +COREG25 M1 PO; +DULOXETINE HYDR30 MG PO; +FENOFIBRATE MI134 MG PO; +HYDROCHLOROTHIA25 MG PO; +MEDROL DOSEPAK4 MG PO; +SEROQUEL50 M1 PO; +TERAZOSIN HCL2 MG PO; +VENTOLIN H0.09 MG/A1 IH; +ZITHROMAX TRI-500 MG PO
[2019-10-08 09:38] LABS: BASOPHIL % 0.6 % (0-2); PLATELET COUNT 362 x10^3mcL (130-400); RED CELL DISTRIBUTION WIDTH 17.1 % (11.5-14.5)
[2019-10-08 09:43] LABS: CALCIUM 8.5 mg/dL (8.5-10.1); CARBON DIOXIDE 31.8 mmol/L (21-32); CREATININE SERUM 1.4 mg/dL (0.7-1.3); POTASSIUM SERUM 3.3 mmol/L (3.5-5.1)
[2019-10-08 09:48] LABS: ALBUMIN 3.6 g/dL (3.4-5.0); BILIRUBIN TOTAL 0.6 mg/dL (0.20-1.00); C REACTIVE PROTEIN 5.4 mg/dL (<=0.9); TOTAL PROTEIN, SERUM 6.7 g/dL (6.4-8.2)
[2019-10-08 11:44] VITALS: BP 133/88
[2019-10-08 13:43] LABS: UA SPECIFIC GRAVITY 1.025 (1.005-1.035); microscopic required? YES; urine erythrocyte NEGATIVE (NEGATIVE)
[2019-10-08 16:18] VITALS: BP 166/100
[2019-10-09 05:45] VITALS: BP 160/95
[2019-10-09 06:40] LABS: PLATELET COUNT 340 x10^3mcL (130-400)
[2019-10-09 06:50] LABS: CALCIUM 8.7 mg/dL (8.5-10.1); CARBON DIOXIDE 32.5 mmol/L (21-32); CHLORIDE SERUM 101 mmol/L (98-107); CREATININE SERUM 1.1 mg/dL (0.7-1.3); GFR1 > 60 mL/min; GLUCOSE SERUM 196 mg/dL (74-106); POTASSIUM SERUM 3.8 mmol/L (3.5-5.1); SODIUM SERUM 139 mmol/L (136-145)
[2019-10-09 06:53] LABS: BASOPHIL % 0 % (0-2); RED CELL DISTRIBUTION WIDTH 16.9 % (11.5-14.5)
[2019-10-09 08:46] VITALS: BP 136/92
[2019-10-09 12:09] VITALS: BP 105/66
[2019-10-09 16:59] VITALS: BP 140/90
[2019-10-09 19:40] VITALS: BP 131/81
[2019-10-10 05:36] VITALS: BP 131/86
[2019-10-10 06:55] LABS: CALCIUM 8.7 mg/dL (8.5-10.1); CARBON DIOXIDE 39.7 mmol/L (21-32); CHLORIDE SERUM 99 mmol/L (98-107); CREATININE SERUM 1.2 mg/dL (0.7-1.3); GFR1 > 60 mL/min; GLUCOSE SERUM 152 mg/dL (74-106); SODIUM SERUM 138 mmol/L (136-145)
[2019-10-10 07:45] LABS: PLATELET COUNT 343 x10^3mcL (130-400)
[2019-10-10 08:04] LABS: BASOPHIL % 0 % (0-2); RED CELL DISTRIBUTION WIDTH 17.1 % (11.5-14.5)
[2019-10-10 08:44] VITALS: BP 140/84
[2019-10-10 12:02] VITALS: BP 123/76
[2019-10-10 16:51] VITALS: BP 141/81
[2019-10-10 21:25] VITALS: BP 136/87
[2019-10-11 04:10] VITALS: BP 145/92
[2019-10-11 07:30] VITALS: BP 142/79
[2019-10-11 09:12] LABS: BASOPHIL % 0.3 % (0-2); PLATELET COUNT 309 x10^3mcL (130-400)
[2019-10-11 09:25] LABS: CALCIUM 8.1 mg/dL (8.5-10.1); CHLORIDE SERUM 98 mmol/L (98-107); CREATININE SERUM 1.1 mg/dL (0.7-1.3); GFR1 > 60 mL/min; GLUCOSE SERUM 203 mg/dL (74-106); POTASSIUM SERUM 3.7 mmol/L (3.5-5.1); SODIUM SERUM 138 mmol/L (136-145)
[2019-10-11 09:28] LABS: RED CELL DISTRIBUTION WIDTH 16.8 % (11.5-14.5)
[2019-10-11 09:37] LABS: CARBON DIOXIDE 42.6 mmol/L (21-32)
[2019-10-11 11:45] VITALS: BP 137/87
[2019-10-11 16:15] VITALS: BP 134/79
[2019-10-11 20:00] VITALS: BP 145/60
[2019-10-12] VITALS: BP 132/70
[2019-10-12 04:00] VITALS: BP 149/83
[2019-10-12 05:04] LABS: PLATELET COUNT 328 x10^3mcL (130-400)
[2019-10-12 05:05] LABS: BASOPHIL % 0 % (0-2); RED CELL DISTRIBUTION WIDTH 16.7 % (11.5-14.5)
[2019-10-12 05:12] LABS: CALCIUM 8.8 mg/dL (8.5-10.1); CHLORIDE SERUM 98 mmol/L (98-107); GFR1 > 60 mL/min; GLUCOSE SERUM 172 mg/dL (74-106); POTASSIUM SERUM 3.9 mmol/L (3.5-5.1); SODIUM SERUM 139 mmol/L (136-145)
[2019-10-12 05:13] LABS: CARBON DIOXIDE 44.4 mmol/L (21-32)
[2019-10-12 10:45] VITALS: Ht 167.6 cm; Wt 126.0 kg
[2019-10-12 13:00] VITALS: BP 153/95
[2019-10-12 20:53] VITALS: BP 153/70
[2019-10-13 06:10] VITALS: BP 157/94
[2019-10-13 06:59] LABS: BASOPHIL % 0.2 % (0-2); PLATELET COUNT 310 x10^3mcL (130-400)
[2019-10-13 07:13] LABS: RED CELL DISTRIBUTION WIDTH 16.3 % (11.5-14.5)
[2019-10-13 07:16] LABS: CALCIUM 8.3 mg/dL (8.5-10.1); CHLORIDE SERUM 99 mmol/L (98-107); GFR1 > 60 mL/min; GLUCOSE SERUM 161 mg/dL (74-106); POTASSIUM SERUM 3.3 mmol/L (3.5-5.1); SODIUM SERUM 141 mmol/L (136-145)
[2019-10-13 07:56] VITALS: BP 151/102
[2019-10-13 08:29] LABS: CARBON DIOXIDE 41.2 mmol/L (21-32)
[2019-10-13 12:07] VITALS: BP 161/107
[2019-10-13 16:15] VITALS: BP 143/86
[2019-10-13 21:24] VITALS: BP 139/79
[2019-10-14 05:41] VITALS: BP 137/94
[2019-10-14 06:27] LABS: BASOPHIL % 0.1 % (0-2); PLATELET COUNT 353 x10^3mcL (130-400)
[2019-10-14 06:48] LABS: RED CELL DISTRIBUTION WIDTH 16.4 % (11.5-14.5)
[2019-10-14 06:56] LABS: CALCIUM 8.7 mg/dL (8.5-10.1); CHLORIDE SERUM 96 mmol/L (98-107); CREATININE SERUM 1.1 mg/dL (0.7-1.3); GFR1 > 60 mL/min; GLUCOSE SERUM 208 mg/dL (74-106); POTASSIUM SERUM 3.8 mmol/L (3.5-5.1); SODIUM SERUM 138 mmol/L (136-145)
[2019-10-14 09:08] VITALS: BP 137/76
[2019-10-14] MEDS ORDERED: ZIT250 PO (10:57)
[2019-10-14] MEDS ORDERED: PREDNISONE20 MG PO (10:57)
[2019-10-14 12:27] VITALS: BP 137/76
[2019-10-14 13:07] VITALS: BP 138/88
== END 2019-10-14 14:42 | disposition home or self-care (01) | DRG 189 ==
LOC: ED 09:01 → DU 11:34 → IC 11:34 → DU 15:56 → IC 10-11 04:16 → DU 10-12 13:11
PROVIDERS: Emergency Medicine; Student in an Organized Health Care Education/Training Program; ADMIT Internal Medicine; ATTEND Internal Medicine
DX: J96.01 Acute respiratory failure with hypoxia (principal); N17.0 Acute kidney failure with tubular necrosis; Z68.41 Body mass index [BMI] 40.0-44.9, adult; J44.1 Chronic obstructive pulmonary disease with (acute) exacerbation; E66.01 Morbid (severe) obesity due to excess calories; I50.9 Heart failure, unspecified; F41.9 Anxiety disorder, unspecified; E78.00 Pure hypercholesterolemia, unspecified; E03.9 Hypothyroidism, unspecified; F20.9 Schizophrenia, unspecified; M79.7 Fibromyalgia; Z20.828 Contact with and (suspected) exposure to other viral communicable diseases; I11.0 Hypertensive heart disease with heart failure; G89.29 Other chronic pain; F31.9 Bipolar disorder, unspecified; G47.33 Obstructive sleep apnea (adult) (pediatric); Z87.891 Personal history of nicotine dependence; Z90.49 Acquired absence of other specified parts of digestive tract; Z79.899 Other long term (current) drug therapy
CPT/HCPCS: 36600; 82962; 83880; 85378; 87804; C9113; G0378; J0456; J0696; J1642; J1815; J1940; J2920; J2930; J7030; J7512; Q0092; U0003-CS